=== PATIENT | male | born 1955 ===

== ENCOUNTER 2017-01-28 20:44 | Observation (INO) | payer MEDICAID, OTHER ==
--- NOTE | 2017-01-28 23:20 | ED PDOC ---
HPI: Psych/Substance Abuse Time Seen by Provider: 01/28/17 20:55 Chief Complaint (Nursing): Psychiatric Evaluation Chief Complaint (Provider): Psychiatric Evaluation ED Caveat: Altered Mental Status (noncooperative) History Per: Family (daughter) History/Exam Limitations: clinical condition Onset/Duration Of Symptoms: Mins (prior to arrival) Current Symptoms Are (Timing): Still Present Additional Complaint(s): Guille Orlando is a 61 year old male with previous history of schizophrenia and seizures, who presents to the emergency department accompanied by his daughter for a crisis evaluation after daughter reported he was being aggressive associated with bizarre behavior at home prior to arrival. Unable to obtain further medical information due to patient being uncooperative. Daughter also states that patient has been noncompliant with medication. PMD: Darion Lopez MD Past Medical History Reviewed: Historical Data, Nursing Documentation, Vital Signs Vital Signs: Last Vital Signs Temp 97.7 F 01/28/17 20:46 Pulse 67 01/28/17 20:46 Resp 18 01/28/17 20:46 BP 144/80 01/28/17 20:46 Pulse Ox 97 01/28/17 20:46 - Medical History PMH: Bipolar Disorder, Depression, Schizophrenia, Seizures Denies: Diabetes, Hepatitis, HIV, HTN, Chronic Kidney Disease, Sexually Transmitted Disease - Family History Family History: States: Unknown Family Hx - Social History Current smoker - smoking cessation education provided: No Alcohol: None Drugs: Denies - Home Medications Home Medications: Ambulatory Orders Medication Instructions Recorded Benztropine [Cogentin] 1 mg PO DAILY #30 tab 04/04/16 Phenytoin, Extended [Dilantin] 100 mg PO QID #120 cer 04/04/16 Zolpidem [Ambien] 5 mg PO HS #30 tab 04/04/16 carBAMazepine [Tegretol] 200 mg PO QID #120 tab 04/04/16 clonazePAM [Klonopin] 0.5 mg PO BID #60 tab 04/04/16 risperiDONE [RisperDAL Tab] 3 mg PO DAILY #30 tab 04/04/16 - Allergies Allergies/Adverse Reactions: Allergies Allergy/AdvReac Type Severity Reaction Status Date / Time No Known Allergies Allergy Verified 01/29/17 08:18 Review of Systems Review Of Systems: ROS cannot be obtained secondary to pt's inabilty to answer questions. (uncooperative and aggressive) Physical Exam - Reviewed Nursing Documentation Reviewed: Yes Vital Signs Reviewed: Yes - Physical Exam Appears: Positive for: Non-toxic, Uncomfortable. Negative for: Well Neurologic/Psych: Positive for: Alert, Other (internally occupied; unwilling to talk; bizzare behavior; respondsive to internal stimuli). Negative for: Oriented - Laboratory Results Result Diagrams: 01/29/17 00:55 01/29/17 00:55 - ECG O2 Sat by Pulse Oximetry: 97 (RA) Pulse Ox Interpretation: Normal Medical Decision Making Medical Decision Making: Initial Impression: Crisis evaluation ; history of schizophrenia; Non-compliant with medication Initial Plan: * EKG * Alcohol serum * Drug screen, urine * Crisis evaluation * Urine dipstick * Labs * PTT * PT * Haldal 5mg IM * Ativan 2mg IM * 1:1 OBVS * Restraint * Urinalysis * Re-evaluate Crisis evaluation: Unable to screen patient because he is aggressive and unwilling to answer questions. Patient to be screened by [facility] for crisis evaluation. Scribe Attestation: Documented by Stacey South, acting as a scribe for Stefan Linda MD. Provider Scribe Attestation: All medical record entries made by the Scribe were at my direction and personally dictated by me. I have reviewed the chart and agree that the record accurately reflects my personal performance of the history, physical exam, medical decision making, and the department course for this patient. I have also personally directed, reviewed, and agree with the discharge instructions and disposition. ED OBSERVATION Date of observation admission: 01/28/17 Time of observation admission: 22:00 - Observation admission statement Patient is being placed in observation because:: crisis evaluation for aggressive and bizarre behavior - Goals of Observation Goals of observation are:: disminished agitation - Progress Note Progress Note: 01/28/17 00:00 --Vital signs are stable and resting comfortably 01/28/17 01:30 --Vital signs are stable and resting comfortably 01/28/17 03:00 --Vital signs are stable and resting comfortably 01/28/17 03:16 --Labs reviewed: no significant abnormality --Crisis eval: medically stable for psychiatric admission 01/28/17 04:30 --Vital signs are stable and resting comfortably 01/28/17 06:00 --Vital signs are stable and resting comfortably 01/28/17 07:00 --Patient signed out to Clif Shukla III, MD. Pending [facility] screener evaluation. Disposition - Clinical Impression Clinical Impression: Psychotic disorder - Disposition Disposition Time: 22:00 Condition: FAIR - Pt Status Changed To: Hospital Disposition Of: Observation - POA Present On Arrival: None Critical Care Time - Critical Care Note Total Time (in mins): 30 Documented critical care: time excludes all time spent performing seperately billable procedures.
[2017-01-29 00:10] LABS: URINE BILIRUBIN NEGATIVE (NEGATIVE); URINE BLOOD NEGATIVE (NEGATIVE); URINE CLARITY CLEAR (Clear); URINE COLOR STRAW (YELLOW); URINE GLUCOSE (UA) NEGATIVE (Normal); URINE PROTEIN NEGATIVE (NEGATIVE); URINE UROBILINOGEN 0.2 mg/dL (0.2-1.0)
[2017-01-29 00:11] LABS: URINE BACTERIA FEW (<OCC); URINE LEUKOCYTE ESTERASE NEGATIVE Leu/uL (Negative); URINE NITRATE NEGATIVE (NEGATIVE)
[2017-01-29 00:14] LABS: BARBITURATES, UR NEGATIVE (NEGATIVE); BENZODIAZEPINES, UR NEGATIVE (NEGATIVE); OPIATES, UR NEGATIVE (NEGATIVE); PHENCYCLIDINE, UR NEGATIVE (NEGATIVE)
[2017-01-29 01:06] LABS: BASO # 0.1 K/uL (0.0-0.2); BASO % 0.9 % (0.0-2.0); EOS % 0.7 % (0.0-4.0); HEMOGLOBIN 12.9 g/dL (12.0-18.0); LYMPH # 2.8 K/uL (1.0-4.3); LYMPH % 47.3 % (20.0-40.0); MEAN CELL VOLUME 92.4 fl (80.0-94.0); MEAN CORPUSCULAR HEMOGLOBIN 31.5 pg (27.0-31.0); MEAN CORPUSCULAR HGB CONC 34.1 g/dL (33.0-37.0); MEAN PLATELET VOLUME 7.1 fl (7.2-11.7); MONO # 0.5 K/uL (0.0-0.8); MONO % 7.8 % (0.0-10.0); NEUT # 2.5 K/uL (1.8-7.0); NEUT % 43.3 % (50.0-75.0); NRBC % 0.1 % (0.0-0.0); RBC 4.1 Mil/uL (4.40-5.90); RED CELL DISTRIBUTION WIDTH 13.3 % (11.5-14.5); WHITE BLOOD COUNT 5.9 K/uL (4.8-10.8)
[2017-01-29 01:15] LABS: ALB/GLOB RATIO 1.2 (1.0-2.1); ALBUMIN 4.4 g/dL (3.5-5.0); ALT/SGPT 30 U/L (21-72); AST/SGOT 24 U/L (17-59); BLOOD UREA NITROGEN 9 mg/dl (9-20); CALCIUM 9.1 mg/dL (8.4-10.2); GFR AFRICAN-AMERICAN > 60; GFR NON-AFRICAN AMERICAN > 60
[2017-01-29 01:20] LABS: PARTIAL THROMBOPLASTIN TIME 24.7 Seconds (25.6-37.1); PROTHROMBIN TIME 11.9 Seconds (9.8-13.1)
--- NOTE | 2017-01-29 07:17 | ED PDOC ---
- Laboratory Results Result Diagrams: 01/29/17 00:55 01/29/17 00:55 - ECG O2 Sat by Pulse Oximetry: 97 (RA) Pulse Ox Interpretation: Normal Medical Decision Making Medical Decision Making: Time:07:00 ---Patient was transferred from Dr. Linda to ct. ---Pending [facility] evaluation 12noon comfortable, tolerating PO, remains 1:1 labs reviewed, no clinically significant abnormalities CXR poor inspiratory effort, repeat for 2 view Add BNP 5pm endorse Dr Alexander pending BNP, repeat CXR and [facility] transfer. Scribe Attestation: Documented by Celina Reina, acting as a scribe for Clif Shukla MD. Provider Scribe Attestation: All medical record entries made by the Scribe were at my direction and personally dictated by me. I have reviewed the chart and agree that the record accurately reflects my personal performance of the history, physical exam, medical decision making, and the department course for this patient. I have also personally directed, reviewed, and agree with the discharge instructions and disposition. Disposition - Clinical Impression Clinical Impression: Psychotic disorder - POA Present On Arrival: None - Disposition Disposition: Transfer of Care Disposition Time: 17:00 Condition: FAIR
--- NOTE | 2017-01-29 08:00 | CARD ---
APPROVED REPORT EKG Measurement Heart [id number] VA 150P30 [id number] <Conclusion> Normal sinus rhythm Normal ECG
--- NOTE | 2017-01-29 11:39 | RAD ---
HISTORY: SOB COMPARISON: Comparison chest 07/21/2016 FINDINGS: LUNGS: Poor inspiration with low lung volumes, crowded bronchovascular markings and mild bibasilar atelectasis. The central pulmonary vasculature is also slightly increased which may and also be secondary to poor inspiration however rule out mild chronic compensated pulmonary edema/ CHF. . Rule out developing lower lobe infiltrates PLEURA: No significant pleural effusion identified, no pneumothorax apparent. CARDIOVASCULAR: Heart size appears enlarged. OSSEOUS STRUCTURES: Degenerative changes of the right shoulder girdle. VISUALIZED UPPER ABDOMEN: Normal. OTHER FINDINGS: None. IMPRESSION: Poor inspiration with low lung volumes, crowded bronchovascular markings and mild bibasilar atelectasis. The central pulmonary vasculature is also slightly increased which may and also be secondary to poor inspiration however rule out mild chronic compensated pulmonary edema/ CHF. . Rule out developing lower lobe infiltrates
--- NOTE | 2017-01-29 13:18 | CP.PCM.CON ---
History of Present Illness - History of Present Illness History of Present Illness: Psychiatry consult Patient will not engage in any interview with the remote mortgage underwriter, he just stares at remote mortgage underwriter.; History obtained from the chart. Pt is a 61 y/o male brought into the ER by his sister. Pt reports that he does not want to take his psych medication because his family is trying to poison him and his psych medications are bad for him. Pt presents with marked agitation toward his sister. Pt repeatedly yells "You are the problem". Pt denied current SI/HI. Pt presents with thought blocking and delayed responses. Pt's answers to all questions is "the medications are bad". Pt's affect is flat and pt appears to be preoccupied with internal stimuli. Pt was not observed verbally responding to stimuli, however his eye contact was limited and he was observed staring blankly toward the wall. Pt's mood is irritable, thought process is delusional and preoccupied. Pt is coherent and oriented 3x. Pt is refusing admission at this time, however is unable to articulate why he does not want to stay in the hospital. Pt's brother (Dagoberto Orlando) and sister report that pt has been refusing to take his medication today and over the past week his appetite has fluctuated. Pt has refused to eat and take his psych medication due to paranoia that his family is trying to poison him and that his medications are bad. Pt has been hearing voices and is selectively mute. Pt threw his medication while in the home and has become agitated with his brother and sister. Sister denied that pt has become physically aggressive toward anyone. PPHx: Pt has a hx of hospitalization at [facility]. Pt was last admitted in June 2016. Pt is currently in treatment with a psychiatrist, Dr. Gonzalez. Pt last saw his psychiatrist in October, and pt has an upcoming outpatient appointment scheduled for 02/19/17. SHx: Denies substance abuse, finished 12th grade. MSE: Patient stares blankly at remote mortgage underwriter and will not answer any questions. Impression: 61 yo male w/ h/o psychotic disorder, presents acutely decompensated , pending bed at [facility] for involuntary admission. -Transfer to [facility] when bed available -Can give Haldol 5 mg PO or IM/ Ativan 2 mg PO or IM q8hr PRN agitation Past Patient History - Infectious Disease Hx of Infectious Diseases: None - Past Medical History & Family History Past Medical History?: Yes - Past Social History Alcohol: None Drugs: Denies - CARDIAC Hx Hypertension: No - PULMONARY Hx Tuberculosis: No - NEUROLOGICAL Hx Seizures: Yes - HEENT Hx HEENT Problems: No - RENAL Hx Chronic Kidney Disease: No - ENDOCRINE/METABOLIC Hx Endocrine Disorders: No - HEMATOLOGICAL/ONCOLOGICAL Hx Human Immunodeficiency Virus (HIV): No - INTEGUMENTARY Hx Dermatological Problems: No - MUSCULOSKELETAL/RHEUMATOLOGICAL Hx Musculoskeletal Disorders: No Hx Falls: No - GASTROINTESTINAL Hx Gastrointestinal Disorders: No - GENITOURINARY/GYNECOLOGICAL Hx Sexually Transmitted Disorders: No - PSYCHIATRIC Hx Bipolar Disorder: Yes Hx Depression: Yes Hx Schizophrenia: Yes - SURGICAL HISTORY Hx Orthopedic Surgery: Yes (RT LEG FX) - ANESTHESIA Hx Anesthesia: Yes Hx Anesthesia Reactions: No Meds Allergies/Adverse Reactions: Allergies Allergy/AdvReac Type Severity Reaction Status Date / Time No Known Allergies Allergy Verified 01/29/17 08:18 Results - Vital Signs Recent Vital Signs: Last Vital Signs Temp 98.4 F 01/29/17 07:30 Pulse 68 01/29/17 07:30 Resp 18 01/29/17 07:30 BP 124/74 01/29/17 07:30 Pulse Ox 96 01/29/17 07:30 - Labs Result Diagrams: 01/29/17 00:55 01/29/17 00:55 Labs: Laboratory Results - last 24 hr 01/28/17 01/28/17 01/29/17 23:50 23:50 00:55 WBC RBC Hgb Hct MCV MCH MCHC RDW Plt Count MPV Neut % (Auto) Lymph % (Auto) [place] % (Auto) Eos % (Auto) Baso % (Auto) Neut # Lymph # [place] # Eos # Baso # PT INR APTT Sodium 136 Potassium 4.0 Chloride 100 Carbon Dioxide 26 Anion Gap 14 BUN 9 Creatinine 0.7 L Est GFR ( Amer) > 60 Est GFR (Non-Af Amer) > 60 Random Glucose 99 Calcium 9.1 Total Bilirubin 0.3 AST 24 ALT 30 Alkaline Phosphatase 110 Total Protein 7.9 Albumin 4.4 Globulin 3.5 Albumin/Globulin Ratio 1.2 Urine Color Straw Urine Clarity Clear Urine pH 7.0 Ur Specific [place] 1.010 Urine Protein Negative Urine Glucose (UA) Negative Urine Ketones Negative Urine Blood Negative Urine Nitrate Negative Urine Bilirubin Negative Urine Urobilinogen 0.2 Ur Leukocyte Esterase Negative Urine RBC (Auto) 3 Urine Bacteria Few H Urine Opiates Screen Negative Urine Methadone Screen Negative Ur Barbiturates Screen Negative Ur Phencyclidine Scrn Negative Ur Amphetamines Screen Negative U Benzodiazepines Scrn Negative U Oth Cocaine Metabols Negative U Cannabinoids Screen Negative Alcohol, Quantitative < 10 01/29/17 01/29/17 00:55 00:55 WBC 5.9 RBC 4.10 L Hgb 12.9 Hct 37.9 MCV 92.4 MCH 31.5 H MCHC 34.1 RDW 13.3 Plt Count 243 MPV 7.1 L Neut % (Auto) 43.3 L Lymph % (Auto) 47.3 H [place] % (Auto) 7.8 Eos % (Auto) 0.7 Baso % (Auto) 0.9 Neut # 2.5 Lymph # 2.8 [place] # 0.5 Eos # 0.0 Baso # 0.1 PT 11.9 INR 1.0 APTT 24.7 L Sodium Potassium Chloride Carbon Dioxide Anion Gap BUN Creatinine Est GFR ( Amer) Est GFR (Non-Af Amer) Random Glucose Calcium Total Bilirubin AST ALT Alkaline Phosphatase Total Protein Albumin Globulin Albumin/Globulin Ratio Urine Color Urine Clarity Urine pH Ur Specific [place] Urine Protein Urine Glucose (UA) Urine Ketones Urine Blood Urine Nitrate Urine Bilirubin Urine Urobilinogen Ur Leukocyte Esterase Urine RBC (Auto) Urine Bacteria Urine Opiates Screen Urine Methadone Screen Ur Barbiturates Screen Ur Phencyclidine Scrn Ur Amphetamines Screen U Benzodiazepines Scrn U Oth Cocaine Metabols U Cannabinoids Screen Alcohol, Quantitative
--- NOTE | 2017-01-30 02:20 | ED PDOC ---
- Laboratory Results Result Diagrams: 01/29/17 00:55 01/29/17 00:55 - ECG O2 Sat by Pulse Oximetry: 99 (RA) Pulse Ox Interpretation: Normal Medical Decision Making Medical Decision Makin Patient signed over to provider from Dr. Alexander pending [facility] bed availability. Scribe Attestation: Documented by Chantale Guallpa acting as a scribe for Stefan Linda MD. MD Scribe Attestation: All medical record entries made by the Scribe were at my direction and personally dictated by me. I have reviewed the chart and agree that the record accurately reflects my personal performance of the history, physical exam, medical decision making, and the department course for this patient. I have also personally directed, reviewed, and agree with the discharge instructions and disposition. Disposition - Clinical Impression Clinical Impression: Psychotic disorder - POA Present On Arrival: None - Disposition Disposition: Hospitalized as Observation Patient Disposition Time: 22:00 Condition: FAIR Patient Signed Over To: Homa Painter (at 0700) Handoff Comments: Pending [facility] bed availability ED OBSERVATION Date of observation admission: 01/28/17 Time of observation admission: 22:00 - Observation admission statement Patient is being placed in observation because:: Bed availability at [facility] - Goals of Observation Goals of observation are:: Bed placement at [facility] - Progress Note Progress Note: 01/29/17 23:00 Patient is resting comfortably, vitals are stable. 01/30/17 00:30 Patient is resting comfortably, vitals are stable. 01/30/17 01:30 Patient is resting comfortably, vitals are stable. 01/30/17 02:26 Patient is resting comfortably, vitals are stable. 01/30/17 03:36 Patient is resting comfortably, vitals are stable. 01/30/17 04:22 Patient is resting comfortably, vitals are stable. 01/30/17 06:10 Patient is resting comfortably, vitals are stable. 01/30/17 07:00 Patient will be signed out to Dr. Painter pending [facility] bed availability.
--- NOTE | 2017-01-30 07:08 | ED PDOC ---
- Laboratory Results Result Diagrams: 01/29/17 00:55 01/29/17 00:55 - ECG O2 Sat by Pulse Oximetry: 99 (RA) Disposition - Clinical Impression Clinical Impression: Schizophrenia - POA Present On Arrival: None - Disposition Disposition: Other Institution Disposition Time: 13:31 Condition: STABLE Addendum Addendum: 01/30/17 07:[address] Linda pending [facility] transfer.
--- NOTE | 2017-01-30 08:29 | CARD ---
APPROVED REPORT EKG Measurement Heart [id number] CA 156P33 [id number] <Conclusion> Normal sinus rhythm Normal ECG
--- NOTE | 2017-01-30 11:10 | CP.PCM.CON ---
History of Present Illness - History of Present Illness History of Present Illness: Psychiatry consult follow-up Patient continues to be unwilling to engage in any interview with the song writer, he just stares at song writer.; History obtained from the chart. Pt is a 61 y/o male brought into the ER by his sister. Pt reports that he does not want to take his psych medication because his family is trying to poison him and his psych medications are bad for him. Pt presents with marked agitation toward his sister. Pt repeatedly yells "You are the problem". Pt denied current SI/HI. Pt presents with thought blocking and delayed responses. Pt's answers to all questions is "the medications are bad". Pt's affect is flat and pt appears to be preoccupied with internal stimuli. Pt was not observed verbally responding to stimuli, however his eye contact was limited and he was observed staring blankly toward the wall. Pt's mood is irritable, thought process is delusional and preoccupied. Pt is coherent and oriented 3x. Pt is refusing admission at this time, however is unable to articulate why he does not want to stay in the hospital. Pt's brother (Dagoberto Orlando) and sister report that pt has been refusing to take his medication today and over the past week his appetite has fluctuated. Pt has refused to eat and take his psych medication due to paranoia that his family is trying to poison him and that his medications are bad. Pt has been hearing voices and is selectively mute. Pt threw his medication while in the home and has become agitated with his brother and sister. Sister denied that pt has become physically aggressive toward anyone. PPHx: Pt has a hx of hospitalization at [facility]. Pt was last admitted in June 2016. Pt is currently in treatment with a psychiatrist, Dr. Gonzalez. Pt last saw his psychiatrist in October, and pt has an upcoming outpatient appointment scheduled for 02/19/17. SHx: Denies substance abuse, finished 12th grade. MSE: Patient stares blankly at song writer and will not answer any questions. Impression: 61 yo male w/ h/o psychotic disorder, presents acutely decompensated , still pending bed at [facility] for involuntary admission. -Transfer to [facility] when bed available -Can give Haldol 5 mg PO or IM/ Ativan 2 mg PO or IM q8hr PRN agitation Past Patient History - Infectious Disease Hx of Infectious Diseases: None - Past Medical History & Family History Past Medical History?: Yes - Past Social History Alcohol: None Drugs: Denies - CARDIAC Hx Hypertension: No - PULMONARY Hx Tuberculosis: No - NEUROLOGICAL Hx Seizures: Yes - HEENT Hx HEENT Problems: No - RENAL Hx Chronic Kidney Disease: No - ENDOCRINE/METABOLIC Hx Endocrine Disorders: No - HEMATOLOGICAL/ONCOLOGICAL Hx Human Immunodeficiency Virus (HIV): No - INTEGUMENTARY Hx Dermatological Problems: No - MUSCULOSKELETAL/RHEUMATOLOGICAL Hx Musculoskeletal Disorders: No Hx Falls: No - GASTROINTESTINAL Hx Gastrointestinal Disorders: No - GENITOURINARY/GYNECOLOGICAL Hx Sexually Transmitted Disorders: No - PSYCHIATRIC Hx Bipolar Disorder: Yes Hx Depression: Yes Hx Schizophrenia: Yes - SURGICAL HISTORY Hx Orthopedic Surgery: Yes (RT LEG FX) - ANESTHESIA Hx Anesthesia: Yes Hx Anesthesia Reactions: No Meds Allergies/Adverse Reactions: Allergies Allergy/AdvReac Type Severity Reaction Status Date / Time No Known Allergies Allergy Verified 01/29/17 08:18 Results - Vital Signs Recent Vital Signs: Last Vital Signs Temp 97.7 F 01/30/17 05:00 Pulse 73 01/30/17 05:00 Resp 18 01/30/17 05:00 BP 135/75 01/30/17 05:00 Pulse Ox 99 01/30/17 07:08 - Labs Result Diagrams: 01/29/17 00:55 01/29/17 00:55
--- NOTE | 2017-01-30 13:01 | RAD ---
HISTORY: repeat, poor insp effort prior; no cough COMPARISON: 01/29/2017 TECHNIQUE: Chest PA and lateral FINDINGS: LUNGS: No active pulmonary disease. PLEURA: No significant pleural effusion identified. No pneumothorax apparent. CARDIOVASCULAR: Normal. OSSEOUS STRUCTURES: No significant abnormalities. VISUALIZED UPPER ABDOMEN: Normal. OTHER FINDINGS: None. IMPRESSION: No active disease.
[2017-01-30 13:56] VITALS: BP 123/73; PULSE 76; RESP 20; TEMP 98
[2017-01-30 15:42] LABS: B-TYPE NATRIURETIC PEPTIDE 20.6 pg/ml (0-900)
[2017-01-31 15:58] VITALS: O2SAT 99
== END 2017-01-30 15:40 | disposition short-term general hospital (02) ==
LOC: H.ER 20:44 → H.EROBSV 01-30 02:23
PROVIDERS: ADMIT Emergency Medicine; ATTEND Emergency Medicine
DX: F29 Unspecified psychosis not due to a substance or known physiological condition (principal); F20.9 Schizophrenia, unspecified; F22 Delusional disorders; F31.9 Bipolar disorder, unspecified; F94.0 Selective mutism; Z79.899 Other long term (current) drug therapy; Z91.14 Patient's other noncompliance with medication regimen; F32.9 Major depressive disorder, single episode, unspecified; R56.9 Unspecified convulsions

== ENCOUNTER 2017-08-23 21:06 | Emergency (ER) | payer MEDICAID ==
[2017-08-23 21:14] VITALS: RESP 16
--- NOTE | 2017-08-23 22:08 | ED PDOC ---
HPI: Psych/Substance Abuse Time Seen by Provider: 08/23/17 22:06 Chief Complaint (Nursing): Psychiatric Evaluation Chief Complaint (Provider): psych History Per: Family (62 y/o male h/o Schizophrenia/psychosis here with brother for evaluation of non compliance with medications and not eating.) Past Medical History Reviewed: Historical Data, Nursing Documentation, Vital Signs Vital Signs: Last Vital Signs Temp 98.6 F 08/23/17 21:10 Pulse 80 08/23/17 21:10 Resp 16 08/23/17 21:10 BP 151/84 H 08/23/17 21:10 Pulse Ox 99 08/23/17 21:10 - Medical History PMH: Bipolar Disorder, Depression, Schizophrenia, Seizures Denies: Diabetes, Hepatitis, HIV, HTN, Chronic Kidney Disease, Sexually Transmitted Disease - Family History Family History: States: Unknown Family Hx - Home Medications Home Medications: Ambulatory Orders Medication Instructions Recorded Benztropine [Cogentin] 1 mg PO DAILY #30 tab 04/04/16 Phenytoin, Extended [Dilantin] 100 mg PO QID #120 cer 04/04/16 Zolpidem [Ambien] 5 mg PO HS #30 tab 04/04/16 carBAMazepine [Tegretol] 200 mg PO QID #120 tab 04/04/16 clonazePAM [Klonopin] 0.5 mg PO BID #60 tab 04/04/16 risperiDONE [RisperDAL Tab] 3 mg PO DAILY #30 tab 04/04/16 - Allergies Allergies/Adverse Reactions: Allergies Allergy/AdvReac Type Severity Reaction Status Date / Time No Known Allergies Allergy Verified 01/29/17 08:18 Review of Systems ROS Statement: Except As Marked, All Systems Reviewed And Found Negative Physical Exam - Reviewed Nursing Documentation Reviewed: Yes Vital Signs Reviewed: Yes - Physical Exam Appears: Positive for: Well, Non-toxic, No Acute Distress Head Exam: Positive for: ATRAUMATIC, NORMAL INSPECTION, NORMOCEPHALIC Skin: Positive for: Normal Color, Warm, DRY Eye Exam: Positive for: EOMI, Normal appearance, PERRL ENT: Positive for: Normal ENT Inspection Neck: Positive for: Normal, Painless ROM Cardiovascular/Chest: Positive for: Regular Rate, Rhythm Respiratory: Positive for: CNT, Normal Breath Sounds Gastrointestinal/Abdominal: Positive for: Normal Exam, Bowel Sounds, Soft Back: Positive for: Normal Inspection Extremity: Positive for: Normal ROM Neurologic/Psych: Positive for: Alert, Oriented - Laboratory Results Result Diagrams: 08/23/17 23:23 08/23/17 23:23 - ECG O2 Sat by Pulse Oximetry: 99 - Progress ED Course And Treament: SEEN BY CRISIS D/W DR. ANDUJAR DIAGNOSIS SCHIZOPHRENIA PATIENT TO BE DISCHARGED HOME AND F/U WITH PSYCHIATRIST. D/W BROTHER WHO WILL PICK HIM UP AT 5:45AM Disposition - Clinical Impression Clinical Impression: Schizophrenia - Patient ED Disposition Is Patient to be Admitted: No - Disposition Disposition: Routine/Home Disposition Time: 01:53 Condition: FAIR Instructions: Schizophrenia (ED) Forms: [employer] (Indonesian)
[2017-08-23 23:27] LABS: BASO # 0.1 K/uL (0.0-0.2); BASO % 0.8 % (0.0-2.0); EOS # 0.1 K/uL (0.0-0.7); EOS % 2.1 % (0.0-4.0); HEMOGLOBIN 12.3 g/dL (12.0-18.0); LYMPH % 32.6 % (20.0-40.0); MEAN CORPUSCULAR HEMOGLOBIN 30.5 pg (27.0-31.0); MEAN CORPUSCULAR HGB CONC 32.4 g/dL (33.0-37.0); MEAN PLATELET VOLUME 7.1 fl (7.2-11.7); MONO # 0.5 K/uL (0.0-0.8); MONO % 8.9 % (0.0-10.0); NEUT # 3.4 K/uL (1.8-7.0); NEUT % 55.6 % (50.0-75.0); NRBC % 0.1 % (0.0-0.0); RBC 4.03 Mil/uL (4.40-5.90); RED CELL DISTRIBUTION WIDTH 13.9 % (11.5-14.5); WHITE BLOOD COUNT 6.1 K/uL (4.8-10.8)
[2017-08-23 23:36] LABS: URINE BILIRUBIN NEGATIVE (NEGATIVE); URINE BLOOD NEGATIVE (NEGATIVE); URINE CLARITY SLIGHTY-CLOUDY (Clear); URINE COLOR YELLOW (YELLOW); URINE GLUCOSE (UA) NEG (Normal); URINE LEUKOCYTE ESTERASE NEG Leu/uL (Negative); URINE NITRATE NEGATIVE (NEGATIVE); URINE PROTEIN NEGATIVE (NEGATIVE); URINE UROBILINOGEN 0.2-1.0 mg/dL (0.2-1.0)
[2017-08-23 23:39] LABS: ALB/GLOB RATIO 1.3 (1.0-2.1); ALBUMIN 4.2 g/dL (3.5-5.0); ALT/SGPT 29 U/L (21-72); AST/SGOT 18 U/L (17-59); BLOOD UREA NITROGEN 11 mg/dl (9-20); CALCIUM 8.7 mg/dL (8.4-10.2); GFR AFRICAN-AMERICAN > 60; GFR NON-AFRICAN AMERICAN > 60
[2017-08-23 23:40] LABS: CARBAMAZEPINE 5.6 ug/mL (4.0-12.0)
[2017-08-23 23:43] LABS: VALPROIC ACID < 10.0 ug/mL (50.0-100.0)
[2017-08-23 23:44] LABS: BARBITURATES, UR NEGATIVE (NEGATIVE); BENZODIAZEPINES, UR NEGATIVE (NEGATIVE); OPIATES, UR NEGATIVE (NEGATIVE); PHENCYCLIDINE, UR NEGATIVE (NEGATIVE)
[2017-08-24 05:49] VITALS: BP 126/79; PULSE 84; TEMP 97.8; O2SAT 95
--- NOTE | 2017-08-24 11:01 | RAD ---
PROCEDURE: CHEST RADIOGRAPH, 1 VIEW HISTORY: cp COMPARISON: Comparison chest 01/29/2017 FINDINGS: LUNGS: Poor inspiration with low lung volumes, crowded bronchovascular markings and bibasilar atelectasis left greater than right. Developing lower lobe infiltrates could be excluded with followup radiographs. PLEURA: No pneumothorax or pleural fluid seen. CARDIOVASCULAR: Normal. OSSEOUS STRUCTURES: No significant abnormalities. VISUALIZED UPPER ABDOMEN: Normal. OTHER FINDINGS: None. IMPRESSION: Poor inspiration with low lung volumes, crowded bronchovascular markings and bibasilar atelectasis left greater than right. Developing lower lobe infiltrates could be excluded with followup radiographs.
--- NOTE | 2017-08-24 11:15 | CARD ---
APPROVED REPORT EKG Measurement Heart [id number] <Conclusion> Normal sinus rhythm Borderline ECG
== END 2017-08-24 05:40 | disposition home or self-care (01) ==
LOC: H.ER 21:06
DX: F20.9 Schizophrenia, unspecified (principal); F31.9 Bipolar disorder, unspecified